=== PATIENT | female | born 1980 | race Two or more races ===

== ENCOUNTER 2024-04-27 13:07 | Outpatient (AMB) | payer MEDICAID, SELFPAY ==
[2024-04-27 13:28] VITALS: BP 157/99; PULSE 92; RESP 18; TEMP 36.6; O2SAT 96; BMI 57.4
--- NOTE | 2024-04-27 13:28 | ORTHONT_ITS ---
Vital signs 04/27/24 13:28 Height 1.65 m Height Method Stated Weight 156.745 kg Weight Measurement Method Standing Scale BMI 57.4 BP 157/99 H Blood Pressure Source Automatic Cuff Blood Pressure Location Right Upper Arm Position Sitting Respiration 18 Pulse 92 Pulse Source Monitor Temp 97.8 F Temp Source Temporal Artery Scan Pulse Oximetry (%) 96 Oxygen Delivery Method Room Air Med/Allergies Allergies & Medications Allergies OZEMPIC Allergy (Uncoded 04/27/24 13:28) Medication Reconciliation acetaminophen 650 mg tablet,extended release (Tylenol 8 Hour) 650 mg PO Q12H 04/27/24 [History Confirmed 04/27/24] etanercept 25 mg/0.5 mL subcutaneous solution (Enbrel) 25 mg subcut QWEEK 04/27/24 [History Confirmed 04/27/24] folic acid 1 mg tablet 1 mg PO QDAY 04/27/24 [History Confirmed 04/27/24] hydrocortisone 20 mg tablet 20 mg PO QDAY 04/27/24 [History Confirmed 04/27/24] ibuprofen 400 mg tablet 400 mg PO Q8H 04/27/24 [History Confirmed 04/27/24] insulin aspart U-100 100 unit/mL subcutaneous solution (Novolog U-100 Insulin aspart) 10 unit subcut TID 04/27/24 [History Confirmed 04/27/24] lisinopril 10 mg tablet 10 mg PO QDAY 04/27/24 [History Confirmed 04/27/24] meloxicam 7.5 mg tablet 7.5 mg PO QDAY #45 tabs 04/27/24 [Rx] metformin 1,000 mg tablet 1,000 mg PO BID 04/27/24 [History Confirmed 04/27/24] omeprazole 20 mg capsule,delayed release 20 mg PO QDAY 04/27/24 [History C onfirmed 04/27/24] Exam Exam Patient is in no acute distress and is cooperative with the examination today. Breathing is nonlabored. In no respiratory distress. Bilateral extremities were evaluated and demonstrates sensation intact to light touch. Palpable pedal pulses are present. No significant edema is present. Bilateral hips were examined. The patient has no pain with log roll of the hips. Internal rotation to 30 degrees and external rotation to 30 degrees is painless. Negative FADIR. The left knee was examined. The left knee is in varus alignment. Range of motion from 0-115 degrees. Knee is stable to varus and valgus as well as AP translation with <5mm. Patient has a negative McMurrays. There is no pain with patellofem oral compression and no crepitus noted. The knee is tender to palpation medially. The right knee was also examined. The right knee is in varus alignment. Range of motion from 0-120 degrees. Knee is stable to varus and valgus as well as AP translation with <5mm. Patient has a negative McMurrays. There is no pain with patellofemoral compression and no crepitus noted. The knee is tender to palpation medially. X-rays were reviewed from [place] [facility] from 6 months ago. Demonstrates medial joint space narrowing and osteophytes. Assessment and Plan Problem List (1) Rheumatoid arthritis: Status: Acute Plan: Patient is a 43-year-old female with bilateral rheumatoid arthritis significant severity. We discussed different treatment options including nonoperative options. We discussed anti-inflammatories, injections, and physical therapy. We also discussed the weight loss in great detail as her BMI is currently 57. We discussed that this may help some of the pain. We also discussed that she is not a great operative candidate right now because of her age and body habitus. We will start her on meloxicam. 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 Intake Visit Data Collection New Patient or Established: New Patient (never been to [facility]) Reason for Visit:: BILATERAL KNEE PAIN Seen by Clinical Staff ONLY (RN/MA): No Verbal consent obtained for Telemed visit?: No Supervisor Customer Complaint Service Required: No PCP or OBGYN visit in last 3 months: Yes Hx Now: No Do You Feel Safe at Home: Yes Authorities Contacted: N/A Questionairres Past Medical History Past Medical History Have you ever been diagnosed with any of the following: Respiratory Problems Smoking: No Smoking Cessation Counseling: No Smoking Exposure: No Stomache/Intestinal Problems Obesity: Yes Subjective Visit Visit for: new patient and knee Immunization / Flu Flu Vaccine in the Last 12 Months: No Flu Vaccine Exclusion Criteria: No Exclusion Criteria History of Present Illness Chief complaint: BILATERAL KNEE PAIN Date of injury / onset of symptoms: ANNELIESE Red is a 43-year-old female presenting today for bilateral knee pain with the previous diagnosis of rheumatoid arthritis. Patient has received multiple cortisone injections in the past but states that they are no longer working for her. Patient is currently using a cane to walk. Patient reports recent weight gain due to steroid treatments for RA. Patient reports the pain is decreasing her ability to complete her daily activities such as grocery shopping.. He has tried multiple injections for anti-inflammatories with minimal. She has recently gained weight because of the prednisone Personal History Red flag PMH: BMI BMI Counceling provided: Yes Pain Pain level (0-10): 10 Pain duration: CONSTANT Pain location: inside (medial) and outside (lateral) Pain quality: sharp, dull, aching, burning, shocking, electric and tingling Pain timing: increases with activity and stairs Associated signs & symptoms: weakness Ambulatory data Ambulatory device: cane Treatments Number of previous injections: 6 Improvement with previous injections: No Improvement with PT: No Improvement with NSAIDS: n/a Review of Systems Review of Systems: All systems negative unless otherwise noted in HPI.
== END 2024-04-27 13:37 | disposition home or self-care (01) ==
PROVIDERS: Supervising Provider Orthopaedic Surgery Adult Reconstructive Orthopaedic Surgery; Visit Provider Orthopaedic Surgery Adult Reconstructive Orthopaedic Surgery
DX: M06.862 Other specified rheumatoid arthritis, left knee (principal); M06.861 Other specified rheumatoid arthritis, right knee; M25.562 Pain in left knee; M25.561 Pain in right knee
CPT/HCPCS: 99203; G0463

== ENCOUNTER 2024-06-22 14:54 | Outpatient (AMB) | payer MEDICAID, SELFPAY ==
[2024-06-22 15:22] VITALS: BP 176/123; PULSE 92; RESP 19; TEMP 36.5; O2SAT 95; BMI 53.3
--- NOTE | 2024-06-22 15:22 | ORTHONT_ITS ---
Vital signs 06/22/24 15:22 Height 1.65 m Height Method Stated Weight 145.15 kg Weight Measurement Method Estimated by Patient BMI 53.3 BP 176/123 H Blood Pressure Source Automatic Cuff Blood Pressure Location Left Upper Arm Position Sitting Respiration 19 Pulse 92 Pulse Source Monitor Temp 97.7 F Temp Source Temporal Artery Scan Pulse Oximetry (%) 95 Oxygen Delivery Method Room Air Med/Allergies Allergies & Medications Allergies OZEMPIC Allergy (Uncoded 06/22/24 15:23) Medication Reconciliation acetaminophen 650 mg tablet,extended release (Tylenol 8 Hour) 650 mg PO Q12H 04/27/24 [History Confirmed 06/22/24] etanercept 25 mg/0.5 mL subcutaneous solution (Enbrel) 25 mg subcut QWEEK 04/27/24 [History Confirmed 06/22/24] folic acid 1 mg tablet 1 mg PO QDAY 04/27/24 [History Confirmed 06/22/24] hydrocortisone 20 mg tablet 20 mg PO QDAY 04/27/24 [History Confirmed 06/22/24] ibuprofen 400 mg tablet 400 mg PO Q8H 04/27/24 [History Confirmed 06/22/24] insulin aspart U-100 100 unit/mL subcutaneous solution (Novolog U-100 Insulin aspart) 10 unit subcut TID 04/27/24 [History Confirmed 06/22/24] lisinopril 10 mg tablet 10 mg PO QDAY 04/27/24 [History Confirmed 06/22/24] meloxicam 7.5 mg tablet 7.5 mg PO QDAY #45 tabs 04/27/24 [Rx Confirmed 06/22/24] metformin 1,000 mg tablet 1,000 mg PO BID 04/27/24 [History Confirmed 06/22/24] omeprazole 20 mg capsule,delayed release 20 mg PO QDAY 04/27/24 [History Confirmed 06/22/24] Exam Exam Patient is in no acute distress and is cooperative with the examination today. Breathing is nonlabored. In no respiratory distress. Bilateral extremities were evaluated and demonstrates sensation intact to light touch. Palpable pedal pulses are present. No significant edema is present. Bilateral hips were examined. The patient has no pain with log roll of the hips. Internal rotation to 30 degrees and external rotation to 30 degrees is painless. Negative FADIR. The left knee was examined. The left knee is in varus alignment. Range of motion from 0-115 degrees. Knee is stable to varus and valgus as well as AP translation with <5mm. Patient has a negative McMurrays. There is no pain with patellofemoral compression and no crepitus noted. The knee is tender to palpation medially. The right knee was also examined. The right knee is in varus alignment. Range of motion from 0-120 degrees. Knee is stable to varus and valgus as well as AP translation with <5mm. Patient has a negative McMurrays. There is no pain with patellofemoral compression and no crepitus noted. The knee is tender to palpation medially. X-rays were reviewed from [place] [facility]. Demonstrates medial joint space narrowing and osteophytes. Assessment and Plan Problem List (1) Rheumatoid arthritis: Status: Acute Plan: Patient is a 43-year-old female with bilateral rheumatoid arthritis significant severity. We discussed different treatment options including nonoperative options. We discussed anti-inflammatories, injections, and physical therapy. We also discussed the weight loss in great detail as her BMI is currently 57. We discussed that this may help some of the pain. We also discussed that she is not a great operative candidate right now because of her age and body habitus. We will start her on meloxicam. She would like a left knee Kenalog injection today. Recommend knee cortisone injection as patient would like to proceed with conservative treatment at this time. The risks and benefits of the procedure were reviewed with the patient and patient gave verbal consent to continue with the procedure. Procedure: performed by Dr. Enicnas Using sterile technique the left knee was thoroughly prepped with alcohol, and approximately 1 cc of Kenalog 40 mg/mL and 4 cc of 1% lidocaine was injected without resistance into the medial tibial femoral joint space. The patient tolerated the procedure. Office Procedures GNS Level of Care Nursing/Assessment Patient Status: Established Patient Nursing Assessment/Reassesment: Medication Reconciliation, Update PMH in EMR and Vital Signs Coordination of Care: Complex Care and Chronic Disease 1-5, Education Complex Pt/Fam, Consent,records obtained, informed consent, Results/Orders obtained and Staff clarify orders Established Patient Charge Established Patient Point Assignment: 95 Established Patient Point Charge: EP Level 3 (80-115) Surgical Proc/IM SQ injection Major Surgical Procedure: Yes (KNEE INJECTION ) Medication Given Medication Given Medication Given: Yes Documented Dose Given: 4 Route: Infiitration Medication Given Medication Given Medication Given: Yes Documented Dose Given: 1 Route: Infiitration Office Meds Xylocaine 10 mg/mL (1 %) injection solution Performing Provider: Santana Encinas MD Performing Location: [facility] Administered by: Santana Encinas MD on 06/22/24 15:33 Dose Route Admin Location Dispensed Lot Number Expiration Date [facility] [place] Hand Potter 20 mL Infiltration 20 mL [id number] 08/12/27 99373-828-03 [facility] triamcinolone acetonide 40 mg/mL suspension for injection Performing Provider: Santana Encinas MD Performing Location: [facility] Administered by: Santana Encinas MD on 06/22/24 15:33 Dose Route Admin Location Dispensed Lot Number Expiration Date [facility] Hand Potter 40 mg intra-articular KNEE 1 mL [id number] 09/10/25 8892-7105-47 [facility] [place] Intake Visit Data Collection New Patient or Established: Established Patient (seen at [facility] within 3 years) Reason for Visit:: KNEE INJECTION FOLLOW UP Seen by Clinical Staff ONLY (RN/MA): No Verbal consent obtained for Telemed visit?: No Salon Assistant Required: No PCP or OBGYN visit in last 3 months: Yes Hx Now: No Do You Feel Safe at Home: Yes Authorities Contacted: N/A Questionairres Past Medical History Past Medical History Have you ever been diagnosed with any of the following: Respiratory Problems Smoking: No Smoking Cessation Counseling: No Smoking Exposure: No Stomache/Intestinal Problems Obesity: Yes Subjective Visit Visit for: new patient, follow up visit, knee and injections Immunization / Flu Flu Vaccine in the Last 12 Months: No Flu Vaccine Exclusion Criteria: No Exclusion Criteria History of Present Illness Chief complaint: BILATERAL KNEE PAIN Date of injury / onset of symptoms: ANNELIESE Red is a 43-year-old female presenting today for bilateral knee pain with the previous diagnosis of rheumatoid arthritis. Patient has received multiple cortisone injections in the past but states that they are no longer working for her. Patient is currently using a cane to walk. Patient reports recent weight gain due to steroid treatments for RA. Patient reports the pain is decreasing her ability to complete her daily activities such as grocery shopping.. He has tried multiple injections for anti-inflammatories with minimal relief. She has recently gained weight because of the prednisone Personal History Red flag PMH: BMI BMI Counceling provided: Yes Pain Pain level (0-10): 10 Pain duration: CONSTANT Pain location: inside (medial), outside (lateral), anterior and posterior Pain quality: sharp, dull, aching, burning, shocking, electric and tingling Pain timing: night, increases with activity and stairs Associated signs & symptoms: weakness and stiffness Ambulatory data Ambulatory device: cane and walker Treatments Number of previous injections: 6 Improvement with previous injections: No Improvement with PT: No Improvement with NSAIDS: n/a Review of Systems Review of Systems: All systems negative unless otherwise noted in HPI.
== END 2024-06-22 15:55 | disposition home or self-care (01) ==
LOC: HODSRG 14:54
PROVIDERS: Supervising Provider Orthopaedic Surgery Adult Reconstructive Orthopaedic Surgery; Visit Provider Orthopaedic Surgery Adult Reconstructive Orthopaedic Surgery
DX: M06.9 Rheumatoid arthritis, unspecified (principal)
CPT/HCPCS: 20610; 99213; J3301; J3490; G0463

== ENCOUNTER 2025-03-28 11:30 | Day surgery (SDC) | payer BC, MEDICAID, SELFPAY ==
--- NOTE | 2025-03-25 06:24 | EKG_ITS ---
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
[2025-03-25 10:46] VITALS: BMI 60.4
[2025-03-25 11:22] LABS: Collection Type, Urine Clean Catch
[2025-03-25 11:47] LABS: Basophils # (Auto) 0.1 Thou/mm3 (0.0-0.2); Basophils % (Auto) 1 % (0-2.5); Eosinophils # (Auto) 0.4 Thou/mm3 (0.0-0.5); Eosinophils % (Auto) 3 % (0-10); Hematocrit 42.6 % (36.0-46.0); Hemoglobin 14.1 g/dL (12.0-16.0); Immature Granulocytes Auto 0.06 Thou/mm3 (0.00-0.00); Lymphocytes # (Auto) 2.9 Thou/mm3 (1.0-4.8); Lymphocytes % (Auto) 21 % (10-50); Mean Corpuscular HGB Conc 33.1 g/dl (31.0-37.0); Mean Corpuscular Hemoglobin 29.4 pg (25.0-35.0); Mean Corpuscular Volume 89 fL (80-100); Monocytes # (Auto) 1.0 Thou/mm3 (0.0-0.8); Monocytes % (Auto) 7 % (0-12); Neutrophils # (Auto) 9.5 Thou/mm3 (1.8-7.7); Neutrophils % (Auto) 68 % (37-80); Nucleated Red Blood Cell # 0.00 Thou/mm3 (0.00-0.00); Nucleated Red Blood Cell % 0 /100 WBC (0); Platelet Count 270 Thou/mm3 (140-440); RDW Standard Deviation 45.3 fL (36.4-46.3); Red Blood Count 4.80 Miln/mm3 (4.00-5.20); White Blood Count 13.9 Thou/mm3 (3.6-11.0)
[2025-03-25 11:57] LABS: Bacteria,Urine Rare; Bilirubin,Urine Negative (Negative); Blood,Urine Negative (Negative); Clarity,Urine Clear (Clear/Hazy); Color,Urine Yellow (Lt Yel-Yel); Glucose, Urine 1+ (Negative); Hyaline Casts,Urine < 1 /hpf (0-1); Ketones,Urine Negative (Negative); Leukocyte Esterase,Urine Negative (Negative); Nitrite,Urine Negative (Negative); PH,Urine 5.5 (5.0-7.0); Protein,Urine Trace (Neg - Trace); RBC,Urine 4 /hpf (0-3); Specific Gravity,Urine 1.025 (1.001-1.035); Squamous Epithelial Cell,Urine 5 /hpf (0-5); Urobilinogen,Urine Negative mg/dL (0.0-1.0); WBC,Urine 3 /hpf (0-5)
[2025-03-25 12:06] LABS: Partial Thromboplastin Time 28.3 Seconds (22.0-36.0)
[2025-03-25 12:42] LABS: Alanine Aminotransferase 46 U/L (10-49); Albumin, Serum 4.6 gm/dL (3.5-5.0); Albumin/Globulin Ratio 1.6 (1.2-2.2); Alkaline Phosphatase 70 U/L (46-116); Anion Gap 9 (7-16); Aspartate Amino Transferase 16 U/L (0-34); BUN/Creatinine Ratio 20 Ratio (12-20); Bilirubin,Total 0.4 mg/dL (0.3-1.2); Blood Urea Nitrogen 16 mg/dL (9-23); Calcium 9.6 mg/dL (8.3-10.6); Calcium (Corrected) 9.6 mg/dL (8.5-10.1); Carbon Dioxide 28.1 mMol/L (20.0-31.0); Chloride 105 mMol/L (98-107); Creatinine (Component) 0.8 mg/dL (0.6-1.3); Estimated Creatinine Clearance 143.2 mL/min (>60); Globulin 2.8 gm/dL (2.3-3.5); Glucose 168 mg/dL (74-106); Osmolality,Calculated 288 (275-295); Potassium 4.0 mMol/L (3.4-5.1); Sodium 142 mMol/L (136-145); Total Protein 7.4 gm/dL (5.7-8.2); eGFR > 60 See Note
--- NOTE | 2025-03-25 14:39 | SUR.PREOP ---
WBC 13.9, Dr Ferrera notified and ok to proceed with surgery.
[2025-03-28] VITALS (9 sets, daily range): BP systolic 126–152; BP diastolic 79–95; PULSE 87–91; RESP 13–23; TEMP 36.6–36.8; O2SAT 93–99; BMI 60.5
--- NOTE | 2025-03-28 16:33 | SUR.PHASEI ---
pt arrived to PACU via gurney with oral airway present, breathing unlabored, dressing to abdomen clean, dry, and intact, report from Catalina CAMP and Kimani DEVI
--- NOTE | 2025-03-28 17:40 | ESOP_ITS ---
Date of Procedure 03/28/25 Pre Op Diagnosis Cholecystitis cholelithiasis Morbid obesity BMI 59.9 Post Op Diagnosis Same Procedure Difficult laparoscopic cholecystectomy 03/28/2025 Findings This patient is morbidly obese and required multiple trocars to handle the collection of adipose tissue in the peritoneal cavity. The gallbladder was inflamed and edematous. There were adhesions to the gallbladder. The procedure was quite difficult due to BMI of 59.9 and it took twice the amount of procedure time and effort for cholecystectomy. Procedure Description In the preop area the procedure was discussed with the patient including risks benefits and alternatives. The risks include possible laparotomy, bleeding, infection bile duct injury and bile leak. Patient may require ERCP for retained stone or a bile leak. The anesthesia risks are to be explained to the patient by the anesthesiologist. Informed consent was obtained. The patient was positioned supine on the operating table and general anesthesia was administered in a satisfactory manner by the anesthesiologist. A timeout procedure was carried out. The patient is positioned in the reverse Trendelenburg position with the right side up. Orogastric tube is introduced into the stomach to decompress the stomach. Prophylactic antibiotics were given in timely manner. Antiembolism measures were taken. The abdomen chest and groin regions were prepped and draped in usual manner. A supraumbilical vertical incision was made and deepened through the layers of abdominal wall and open laparoscopic procedure is carried out. The balloon catheter was introduced and pneumoperitoneum is achieved. A 30? scope was used. Under direct vision right subxiphoid, midclavicular and anterior axillary line trochars were introduced. Later on I had to put in 1 more trocar in the midclavicular line on the right side at the level of the umbilicus in order to hold the adipose tissue collection away from the right upper quadrant. This is the only where I could see the mau hepatis clearly. The gallbladder is then lifted up and a laparoscopic lysis of adhesions was carried out. The gallbladder is freed from the adhesions and the mau hepatis is exposed. The triangle of Calot is gently dissected and the artery to cystic duct is divided with harmonic ultrasonic phillip. There is a significant amount of scar chronic scar tissue in the mau hepatis that made the dissection and procedures much slower. The posterior view of safety was achieved. The cystic artery and cystic duct are identified individually and they were ligated close to the gallbladder with hemoclips. There was an accessory cystic artery as well as multiple branches of the cystic artery proper. They were all individually controlled and divided. The cystic artery and the cystic duct are divided between the hemoclips close to the gallbladder. Care was taken to avoid tenting of the common duct. There is a significant length of cystic duct stump towards the common bile duct. The gallbladder is dissected and lifted from the liver bed using harmonic ultrasonic phillip. The gallbladder bed hemostasis is achieved. The gallbladder is retrieved out of the peritoneal cavity in a specimen bag. The balloon cannula is reintroduced and pneumoperitoneum is reestablished. The peritoneal cavity is thoroughly irrigated with sterile saline solution and hemostasis again ascertained. All the cannulas are removed under direct vision there is no bleeding from the cannula sites. The linea alba repair is carried out with the 0 Vicryl continuous suture. The subcutaneous tissues approximated by a 3-0 chromic and skin by 4-0 monocril subcuticular stitch. For the rest of the trocar site incisions are closed in 2 layers with a 3-0 chromic and 4-0 monocril subcuticular stitch. Steri-Strips are applied. Sterile dressings are applied. Complications none. Patient is transferred to the recovery room in a s atisfactory condition. Anesthesia GETA Drains None. Implants None. Pathology / specimen Other (Gallbladder with contents) Estimated Blood Loss 25 Condition Stable Disposition PACU Surgeon Vic Ferrera MD Surgical Staff Operation Date: 03/28/25 13:30 Case Staff Anesthesiologist: Sly Vázquez MARKETING PLANNER: Micky Toribio RNdoctor of naturopathic medicine: Marisel Jaffe
--- NOTE | 2025-03-28 18:20 | SUR.PHASEII ---
pt awake, alert, able to follow commands, breathing unlabored, dressing to abdomen clean, dry, and intact, pt able to amulate to wheelchair with steady gait and urinate in the bathroom without difficulty, pt able to tolerate oral fluids without difficulty swallowing or n/v, discharge instructions given with two daughters present, pt and family verbalize understanding of discharge instructions, pt discharged via wheelchair with all belongings and copies of discharge paperwork.
== END 2025-03-28 18:20 | disposition home or self-care (01) ==
PROVIDERS: PCP Family Medicine; Referring Provider Specialist; Visit Provider Specialist
PROC: 0FT44ZZ Resection of Gallbladder, Percutaneous Endoscopic Approach (ICD-10-PCS; CPT 47562; principal; 2025-03-28 13:15)
DX: K80.10 Calculus of gallbladder with chronic cholecystitis without obstruction (principal); Z01.810 Encounter for preprocedural cardiovascular examination; E66.01 Morbid (severe) obesity due to excess calories; Z68.43 Body mass index [BMI] 50.0-59.9, adult
CPT/HCPCS: 47562; 36415; 80053; 81001; 85025; 85730; 93005; A4217; A4649; J0131; J0694; J1100; J1885; J2250; J2405; J2704; J3010; J3490; J1920